=== PATIENT | male | born 1975 | race African-American/Black ===

== ENCOUNTER 2022-01-09 02:22 | Emergency (ER) | payer SELFPAY ==
[~2022-01-09] VITALS: Ht 175.3 cm; Wt 75.0 kg
[2022-01-09] MEDS ORDERED: KETOROLAC 30MG/ML VIAL IM ONE (05:30)
[2022-01-09 05:44] VITALS: BP 161/100
[2022-01-09 05:51] LABS: CLARITY URINE CLEAR (CLEAR); COLOR URINE YELLOW (YELLOW); KETONES URINE NEGATIVE (NEGATIVE); LEUKOCYTE ESTERASE URINE NEGATIVE (NEGATIVE); NITRITE URINE NEGATIVE (NEGATIVE); OCCULT BLOOD URINE NEGATIVE (NEGATIVE); PH URINE 5.5 (4.5-8.0); PROTEIN URINE NEGATIVE (NEGATIVE); SPECIFIC GRAVITY URINE 1.014 (1.005-1.030); UROBILINOGEN URINE 0.2 E.U./dL (0.2-1.0)
[2022-01-09] MEDS ORDERED: IBUP-2029 MT (07:03)
[2022-01-09] MEDS ORDERED: CYCL10TA21 MT (07:03)
== END 2022-01-09 07:17 | disposition home or self-care (01) ==
LOC: ER 02:22
DX: S39.012A Strain of muscle, fascia and tendon of lower back, initial encounter (principal); M25.551 Pain in right hip; R26.2 Difficulty in walking, not elsewhere classified; M47.816 Spondylosis without myelopathy or radiculopathy, lumbar region; W01.0XXA Fall on same level from slipping, tripping and stumbling without subsequent striking against object, initial encounter; Y93.89 Activity, other specified; Y92.89 Other specified places as the place of occurrence of the external cause
CPT/HCPCS: 72100; 81003; 96372; 99284; J1885